=== PATIENT | male | born 1990 | race Caucasian/White ===

== ENCOUNTER 2016-04-20 12:18 | Emergency (ER) | payer BC ==
[~2016-04-20] VITALS: Ht 182.8 cm; Wt 83.9 kg
[~2016-04-20 12:18] MED LIST: DAYPRO600 M1 PO; FLEXERIL5 MG PO; KEFLEX500 MG PO; KENALOG0.1% TP; NKHM; PREDNICOT20 MG PO; ROBAXIN750 MG PO; TRAMADOL HCL50 MG PO; VOLTAREN50 M1 PO
[2016-04-20] MEDS ORDERED: Motrin,Rufen800 MG PO (13:48)
[2016-04-20] MEDS ORDERED: CEPHALEXIN500 M1 PO (13:48)
== END 2016-04-20 13:52 | disposition home or self-care (01) ==
LOC: ED 12:18
DX: S90.111A Contusion of right great toe without damage to nail, initial encounter (principal); L03.031 Cellulitis of right toe; F17.200 Nicotine dependence, unspecified, uncomplicated; W21.05XA Struck by basketball, initial encounter; Y93.89 Activity, other specified; Y92.9 Unspecified place or not applicable; Y99.9 Unspecified external cause status

== ENCOUNTER 2017-01-07 02:00 | Emergency (ER) | payer SELFPAY ==
[~2017-01-07] VITALS: Ht 185.4 cm; Wt 95.3 kg
[~2017-01-07 02:00] MED LIST changes: +CEPHALEXIN500 M1 PO; +Motrin,Rufen800 MG PO
[2017-01-07] MEDS ORDERED: NAPROSYN500 MG PO (03:51)
== END 2017-01-07 04:11 | disposition home or self-care (01) ==
LOC: ED 02:00
DX: S67.01XA Crushing injury of right thumb, initial encounter (principal); W23.0XXA Caught, crushed, jammed, or pinched between moving objects, initial encounter; Y93.89 Activity, other specified; Y92.69 Other specified industrial and construction area as the place of occurrence of the external cause; Y99.9 Unspecified external cause status

== ENCOUNTER 2018-08-11 19:14 | Emergency (ER) | payer MEDICAID ==
[~2018-08-11] VITALS: Ht 182.8 cm; Wt 86.2 kg
[~2018-08-11 19:14] MED LIST changes: +NAPROSYN500 MG PO
[2018-08-11 20:24] LABS: BILIRUBIN NEGATIVE (NEGATIVE); BLOOD TRACE-INTACT (NEGATIVE); CLARITY CLOUDY (CLEAR); COLOR YELLOW (YELLOW); GLUCOSE NEGATIVE (NEGATIVE); KETONE TRACE (NEGATIVE); LEUKO ESTERASE 2+ (NEGATIVE); NITRITE NEGATIVE (NEGATIVE); SPECIFIC GRAVITY >= 1.030 (1.005-1.030); UROBILINOGEN 0.2 E.U./dl (0.2-1.0)
[2018-08-11 20:31] LABS: WBC TNTC wbc/hpf (0-5)
[2018-08-11] MEDS ORDERED: SEPTDS PO (21:51)
[2018-08-11] MEDS ORDERED: PYRIDIUM100 MG PO (21:51)
== END 2018-08-11 22:03 | disposition home or self-care (01) ==
LOC: ED 19:14
PROVIDERS: Student in an Organized Health Care Education/Training Program
DX: N30.90 Cystitis, unspecified without hematuria (principal)

== ENCOUNTER 2018-09-20 12:17 | Emergency (ER) | payer MEDICAID ==
[~2018-09-20] VITALS: Wt 83.9 kg
[~2018-09-20 12:17] MED LIST changes: +PYRIDIUM100 MG PO; +SEPTDS PO
[2018-09-20] MEDS ORDERED: DOXYCYCLINE100 M3 PO (12:20)
== END 2018-09-20 12:48 | disposition home or self-care (01) ==
LOC: ED 12:17
DX: A54.9 Gonococcal infection, unspecified (principal); A56.8 Sexually transmitted chlamydial infection of other sites; Z79.899 Other long term (current) drug therapy; Z79.2 Long term (current) use of antibiotics

== ENCOUNTER 2021-02-07 05:55 | Emergency (ER) | payer OTHER ==
[~2021-02-07] VITALS: Ht 182.8 cm; Wt 97.5 kg
[~2021-02-07 05:55] MED LIST changes: +DOXYCYCLINE100 M3 PO
== END 2021-02-07 06:44 | disposition home or self-care (01) ==
LOC: ED 05:55
DX: Z13.89 Encounter for screening for other disorder (principal)

== ENCOUNTER 2023-10-28 12:01 | Emergency (ER) | payer OTHER ==
[~2023-10-28] VITALS: Ht 182.8 cm; Wt 86.2 kg
== END 2023-10-28 12:34 | disposition home or self-care (01) ==
LOC: ED 12:01
DX: Z01.30 Encounter for examination of blood pressure without abnormal findings (principal); F17.290 Nicotine dependence, other tobacco product, uncomplicated; Z98.890 Other specified postprocedural states